=== PATIENT | female | born 1970 | race Caucasian/White ===

== ENCOUNTER 2016-07-02 04:58 | Day surgery (SDC) | payer OTHER ==
--- NOTE | 2016-07-01 15:05 | HP ---
[id number] Illness: 45 year old female complaining of heavy vaginal bleeding with her menses. A pelvic ultrasound was performed on June 15 revealing a retroverted uterus measuring 11by 8 by 6 cm. There was a fundal fibroid measuring 5 cm. The endometrium was described as prominent. Bleeding is excessive requiring 9 pads per day. Last month, bleeding was irregular. She denies pressure, pain or abdominal distention. Pap smear May 2016 negative for malignancy and HPV. History Source: Patient (and daughter Meghana who is a RN.), Family Member Limitations to Obtaining History: No Limitations - Past Surgical History Hx Myomectomy: No Hx Transabdominal Cerclage: No - Smoking History Smoking history: Never smoked Have you smoked in the past 12 months: No - Alcohol/Substance Use Hx Alcohol Use: No Home Medications - Allergies Allergies/Adverse Reactions: Allergies Allergy/AdvReac Type Severity Reaction Status Date / Time No Known Drug Allergies Allergy Verified 07/02/16 07:17 - Home Medications Home Medications: Ambulatory Orders Lisinopril [Zestril] 2.5 mg PO DAILY 07/01/16 Family Disease History - Family Disease History Family Disease History: CA: Sister (Uterine cancer), Other: Father (HPT) Review of Systems - Review of Systems Constitutional: reports: No Symptoms Cardiovascular: reports: No Symptoms Respiratory: reports: No Symptoms Gastrointestinal: reports: No Symptoms Genitourinary: reports: No Symptoms 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 Constitutional: Yes: Well Nourished, No Distress Neck: Yes: Supple Cardiovascular: Yes: Regular Rate and Rhythm Respiratory: Yes: CTA Bilaterally Gastrointestinal: Yes: WNL, Soft ...Rectal Exam: Yes: WNL Pelvis: Yes: WNL External Genitalia: Yes: Normal Internal Exam Deferred: No Vaginal Exam: Yes: Normal Cervix: Yes: Normal Uterus: Yes: Freely Moveable, Enlarged Adnexa: Normal: Bilateral Breast(s): Yes: WNL Edema: No Imaging - Results Ultrasound: Report Reviewed (Retroverted uterus with fundal fibroid and prominent endometrium) Assessment/Plan Fibroid Uterus Menorrhagia Plan: D and C with HYsteroscopy 07/02/2016
[2016-07-02] MEDS ORDERED: MIDAZOLAM HCL 2 MG/2 ML SINGLE DOSE VIAL ONE (07:47)
--- NOTE | 2016-07-02 08:02 | HP ---
History & Physical Update - History History: No Change - Physical Physical: No Change - Assessment Assessment: No Change - Plan Plan: No Change
[2016-07-02] MEDS ORDERED: PROPOFOL 20 ML ONE (08:08)
[2016-07-02] MEDS ORDERED: SUCCINYLCHOLINE CHLORIDE 200 MG/10 ML VIAL ONE (08:08)
[2016-07-02] MEDS ORDERED: LIDOCAINE HCL/PF 2% SDV 5ML VIAL ONE (08:22)
[2016-07-02] MEDS ORDERED: KETOROLAC TROMETHAMINE 30 MG/1 ML VIAL ONE (08:22)
[2016-07-02] MEDS ORDERED: DEXAMETHASONE SOD PHOSPHATE 4 MG/1 ML VIAL ONE (08:22)
[2016-07-02] MEDS ORDERED: IBUPROFEN 400 MG TABLET (FP) PO PRN (08:34)
[2016-07-02] MEDS ORDERED: ACETAMINOPHEN 325 MG TABLET (FP) PO PRN (08:34)
--- NOTE | 2016-07-02 08:40 | OP ---
Operative Note - Note: Operative Date: 07/02/16 Pre-Operative Diagnosis: Menorrhagia, Fibroid uterus, Prominent endometrium Operation: D and C Hysteroscopy Findings: Uterus enlarge 8 weeks size, globular firm mid position Cervix clear no lesion stenosed endocervix Uterine lenth 8 cm. Cavity globular, no polyps or fibroids seen Adnexa negative. Post-Operative Diagnosis: Other (Same plus endocervical stenosis) Surgeon: Stephen Robles Anesthesiologist/[employer] SUPERVISOR: Lelia Saeed MD Anesthesia: General Specimens Removed: Endometrial curettings Estimated Blood Loss (mls): 10 Fluid Volume Replaced (mls): 500 Operative Report Dictated: Yes
[2016-07-02] MEDS ORDERED: oxyCODONE HCL 5 MG TABLET PO PRN (08:43)
[2016-07-02] MEDS ORDERED: PROMETHAZINE HCL 25 MG/1 ML VIAL IVPUSH PRN (08:43)
[2016-07-02] MEDS ORDERED: ONDANSETRON 4 MG/2 ML VIAL IVPUSH PRN (08:43)
[2016-07-02] MEDS ORDERED: LACTATED RINGERS SOLUTION 1,000 ML IV SCH (08:45)
[2016-07-02 10:05] VITALS: BP 111/70; PULSE 84; TEMP 99.1
[2016-07-02] MEDS ORDERED: IBUPROFEN 400 MG TABLET (FP) PO ONE (10:19)
--- NOTE | 2016-07-03 09:42 | OP ---
DATE OF OPERATION: 07/02/2016 PREOPERATIVE DIAGNOSIS: Menorrhagia, fibroid uterus. POSTOPERATIVE DIAGNOSIS: Menorrhagia, fibroid uterus, plus cervical stenosis. SURGEON: Stephen Garcia MD ANESTHESIA: General. ANESTHESIOLOGIST: Lelia Saeed MD SPECIMEN: Endometrial curettings. BLOOD LOSS: 10 mL. FLUIDS: 500 mL. PROCEDURE: Under general anesthesia, the patient was placed in dorsal lithotomy position, prepped and draped in the usual sterile manner. Pelvic examination was performed revealing the uterus that was proportioned globular, approximately 8 weeks in size, firm and mobile. Adnexa negative. A weighted speculum was inserted in the vagina. The anterior lip of the cervix was grasped with a sharp-tooth tenaculum. The cervix was noted to be stenosed in the mid portion. Therefore, with careful dilatation with a small dilator and hysteroscopic visualization, a passage was created into the endometrial canal and into the endometrial cavity. The cervix was then dilated further. Hysteroscope was then inserted, revealing a globular shaped uterine cavity with no evidence of any submucous fibroids or polyps. With these findings noted, hysteroscope was then removed. Cervix was further dilated. Endometrial curettage was performed. Polypoid tissue was obtained. Patient tolerated the procedure well and was brought to the recovery room in satisfactory condition. STEPHEN GARCIA M.D. [id number] MTDD
--- NOTE | 2016-07-07 11:20 | PATH ---
Surgical Pathology Report Patient Name: DIANA BELL [facility] [place]. Rec. #: [id number] /Age/Gender: 1970 (Age: 45) / F Account: [id number] Location: [facility] Taken: 07/02/2016 Received: 07/02/2016 Reported: 07/05/2016 Physicians: Stephen Robles M.D. Specimen(s) Received ENDOMETRIAL CURETTINGS Clinical History 45 yo, heavy menses, fibroid uterus, prominent endometrium on ultrasound Final Diagnosis ENDOMETRIUM, CURETTAGE: POLYPOID AND NON-POLYPOID FRAGMENTS OF SECRETORY ENDOMETRIUM. FRAGMENTS OF BENIGN SMOOTH MUSCLE. Electronically Signed Kendall Rodriguez M.D. Gross Description Received in formalin labeled "endometrium" is a 4.0 x 2.6 x 0.3 cm aggregate of conner-pink soft tissue fragments. The formalin is filtered and the specimen is entirely submitted in 2 cassettes. /07/02/2016 saudi07/02/2016
== END 2016-07-02 10:35 | disposition home or self-care (01) ==
LOC: JASU-SURG 04:58
PROVIDERS: ATTEND Obstetrics & Gynecology
PROC: 0UDB8ZX Extraction of Endometrium, Via Natural or Artificial Opening Endoscopic, Diagnostic (ICD-10-PCS; principal; 2016-07-02 08:00)
DX: N92.0 Excessive and frequent menstruation with regular cycle (principal); N88.2 Stricture and stenosis of cervix uteri
CPT/HCPCS: 84703; 88305-TC; 94760

== ENCOUNTER 2016-09-16 21:11 | Emergency (ER) | payer OTHER ==
[2016-09-16 21:28] VITALS: BP 156/91; PULSE 99; TEMP 98.4; BMI 35.9
--- NOTE | 2016-09-16 23:33 | PDOC ---
History of Present Illness <Kumar Taylor - Last Filed: 09/17/16 02:06> - General History Source: Patient Exam Limitations: No Limitations - History of Present Illness Initial Comments: 09/17/16 02:09 The patient is a 46-year-old female, with no significant past medical history, who presents to the ED with right-sided adnexal pain. The patient reports having a D&C 2 months ago. She did not have a period last month but did start her period today. Family is concerned for a cyst. The patient denies any fever, chills, nausea, vomiting, or diarrhea. She denies any chest pain or shortness of breath. Surgical Hx: Gallbladder removal, D&C PCP: Dr. Stephen Rolbes <Layla Carlos - Last Filed: 09/17/16 02:12> - General Chief Complaint: Pain Stated Complaint: PAIN Time Seen by Provider: 09/16/16 23:32 Past History - Past Medical History Anemia: No Asthma: No Cancer: No Cardiac Disorders: No CVA: No COPD: No CHF: No Dementia: No Diabetes: No GI Disorders: No Disorders: No HTN: Yes Hypercholesterolemia: No Liver Disease: No Seizures: No Thyroid Disease: No - Surgical History Abdominal Surgery: Yes (Tubal ligation) Appendectomy: No Cardiac Surgery: No Cholecystectomy: Yes Lung Surgery: No Neurologic Surgery: No Orthopedic Surgery: No - Psycho/Social/Smoking Cessation Hx Suicidal Ideation: No Smoking History: Never smoked Have you smoked in the past 12 months: No Information on smoking cessation initiated: No Hx Alcohol Use: No Drug/Substance Use Hx: No Substance Use Type: None Hx Substance Use Treatment: No <Kumar Taylor - Last Filed: 09/17/16 02:06> <Layla Carlos - Last Filed: 09/17/16 02:12> - Past Medical History Allergies/Adverse Reactions: Allergies Allergy/AdvReac Type Severity Reaction Status Date / Time No Known Drug Allergies Allergy Verified 09/16/16 21:24 Home Medications: Ambulatory Orders Lisinopril [Zestril] 2.5 mg PO DAILY 07/01/16 Review of Systems - Review of Systems Able to Perform ROS?: Yes Comments:: 09/17/16 02:10 GENERAL/CONSTITUTIONAL: No fever or chills. No weakness. HEAD, EYES, EARS, NOSE AND THROAT: No change in vision. No ear pain or discharge. No sore throat. CARDIOVASCULAR: No chest pain or shortness of breath. RESPIRATORY: No cough, wheezing, or hemoptysis. GASTROINTESTINAL: +Right adnexal pain. No nausea, vomiting, diarrhea or constipation. GENITOURINARY: No dysuria, frequency, or change in urination. MUSCULOSKELETAL: No joint or muscle swelling or pain. No neck or back pain. SKIN: No rash NEUROLOGIC: No headache, vertigo, loss of consciousness, or change in strength/ sensation. ENDOCRINE: No increased thirst. No abnormal weight change. HEMATOLOGIC/LYMPHATIC: No anemia, easy bleeding, or history of blood clots. ALLERGIC/IMMUNOLOGIC: No hives or skin allergy. <Layla Carlos - Last Filed: 09/17/16 02:12> *Physical Exam - Vital Signs Last Vital Signs Temp Pulse Resp BP Pulse Ox 98.4 F 99 H 20 156/91 99 09/16/16 21:24 09/16/16 21:24 09/16/16 21:24 09/16/16 21:24 09/16/16 21:24 <Kumar Taylor - Last Filed: 09/17/16 02:06> - Vital Signs Last Vital Signs Temp Pulse Resp BP Pulse Ox 98.4 F 99 H 20 156/91 99 09/16/16 21:24 09/16/16 21:24 09/16/16 21:24 09/16/16 21:24 09/16/16 21:24 - Physical Exam Comments: 09/17/16 02:11 GENERAL: Awake, alert, and fully oriented, in no acute distress HEAD: No signs of trauma EYES: PERRLA, EOMI, sclera anicteric, conjunctiva clear ENT: Auricles normal inspection, hearing grossly normal, nares patent, oropharynx clear without exudates. Moist mucosa NECK: Normal ROM, supple, no lymphadenopathy, JVD, or masses LUNGS: Breath sounds equal, clear to auscultation bilaterally. No wheezes, and no crackles HEART: Regular rate and rhythm, normal S1 and S2, no murmurs, rubs or gallops ABDOMEN: +Tenderness at [place]bur[place] point. Soft, normoactive bowel sounds. No guarding, no rebound. No masses EXTREMITIES: Normal range of motion, no edema. No clubbing or cyanosis. No cords, erythema, or tenderness NEUROLOGICAL: Cranial nerves II through XII grossly intact. SKIN: Warm, Dry, normal turgor, no rashes or lesions noted <Layla Carlos - Last Filed: 09/17/16 02:12> ED Treatment Course - LABORATORY CBC & Chemistry Diagram: 09/17/16 00:18 09/17/16 00:18 <Kumar Taylor - Last Filed: 09/17/16 02:06> - LABORATORY CBC & Chemistry Diagram: 09/17/16 00:18 09/17/16 00:18 - ADDITIONAL ORDERS Additional order review: Laboratory Results 09/17/16 09/17/16 09/17/16 00:50 00:18 00:18 INR Sodium 139 Potassium 4.0 Chloride 107 Carbon Dioxide 25 Anion Gap 7 L BUN 13 Creatinine 0.7 Creat Clearance w eGFR > 60 Random Glucose 104 Calcium 9.1 Total Bilirubin 0.2 AST 34 ALT 47 Alkaline Phosphatase 82 Total Protein 7.6 Albumin 3.9 Beta HCG, Quant < 1.0 Serum , Qual Negative Urine Color Ltyellow Urine Appearance Clear Urine pH 6.0 Urine Protein Negative Urine Glucose (UA) Negative Urine Ketones Negative Urine Blood 3+ H Urine Nitrite Negative Urine Bilirubin Negative Urine Urobilinogen Negative Ur Leukocyte Esterase Negative Urine RBC 35 Urine WBC 33 Ur Epithelial Cells Rare Calcium Oxalate Crystal Rare Urine Bacteria Few Urine Mucus Rare Urine HCG, Qual Negative 09/16/16 23:45 INR 1.12 Sodium Potassium Chloride Carbon Dioxide Anion Gap BUN Creatinine Creat Clearance w eGFR Random Glucose Calcium Total Bilirubin AST ALT Alkaline Phosphatase Total Protein Albumin Beta HCG, Quant Serum , Qual Urine Color Urine Appearance Urine pH Urine Protein Urine Glucose (UA) Urine Ketones Urine Blood Urine Nitrite Urine Bilirubin Urine Urobilinogen Ur Leukocyte Esterase Urine RBC Urine WBC Ur Epithelial Cells Calcium Oxalate Crystal Urine Bacteria Urine Mucus Urine HCG, Qual 09/17/16 00:18 RBC 3.91 MCV 90.9 MCHC 33.3 RDW 14.2 MPV 9.5 Neutrophils % 58.7 D Lymphocytes % 31.6 D Monocytes % 7.3 Eosinophils % 1.7 Basophils % 0.7 - Medications Given in the ED: ED Medications Discontinued Medications Generic Name Dose Route Start Last Admin Trade Name Freq PRN Reason Stop Dose Admin Sodium Chloride 1,000 mls @ 1,000 mls/hr 09/16/16 23:51 09/17/16 00:28 Normal Saline - IV 09/17/16 00:50 Not Given ASDIR STA <Layla Carlos - Last Filed: 09/17/16 02:12> Medical Decision Making - Medical Decision Making 09/17/16 02:06 Patient was never sent to cat scan and now she is tired of waiting and wants to leave [facility] <Kumar Taylor - Last Filed: 09/17/16 02:06> *DC/Admit/Observation/Transfer - Discharge Dispostion Admit: No - Attestations Physician Attestion: 09/16/16 23:33 I, Dr. Kumar Taylor, attest that this document has been prepared under my direction and personally reviewed by me in its entirety. I further attest, that it accurately reflects all work, treatment, procedures and medical decision -making performed by me. <Kumar Taylor - Last Filed: 09/17/16 02:06> - Attestations Scribe Attestion: 09/17/16 02:12 Documentation prepared by Layla Carlos, acting as medical reimbursement specialist for Kmuar Taylor MD. <TerranceElvisLayla - Last Filed: 09/17/16 02:12> Diagnosis at time of Disposition: Abdominal pain Qualifiers: Abdominal location: right lower quadrant Qualified Code(s): R10.31 - Right lower quadrant pain - Referrals Referrals: Stephen Robles MD [Primary Care Provider] - - Patient Instructions Additional Instructions: Analisa- I can not tell you why you are hurting. So far all we see are fibroids in your uterus. 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 All I can tell you is to come back if the pain continues or gets worse. The CT Scan that you are refusing would tell us if you have appendicitis. Without it I can not tell you what is wrong. Best- Dr. Kumar Taylor
[2016-09-16] MEDS ORDERED: SODIUM CHLORIDE 1,000 ML IV STA (23:51)
[2016-09-17 00:46] LABS: BASOPHIL 0.7 % (0-2.0); EOSINOPHIL 1.7 % (0-4.5); MCH 30.3 pg (25.7-33.7); MCHC 33.3 g/dl (32.0-36.0); MEAN CELL VOLUME 90.9 fl (80-96); MEAN PLT VOLUME 9.5 fl (7.5-11.1); NEUTROPHILS 58.7 % (42.8-82.8); PLATELET COUNT 220 K/MM3 (134-434); RDW 14.2 % (11.6-15.6); WHITE BLOOD COUNT 7.9 K/mm3 (4.0-10.0)
[2016-09-17 00:48] LABS: URINE APPEARANCE CLEAR; URINE BILIRUBIN NEGATIVE (NEGATIVE); URINE BLOOD 3+ (NEGATIVE); URINE COLOR LTYELLOW; URINE GLUCOSE (UA) NEGATIVE (NEGATIVE); URINE KETONE NEGATIVE (NEGATIVE); URINE LEUK ESTERASE NEGATIVE (NEGATIVE); URINE NITRITE NEGATIVE (NEGATIVE); URINE PROTEIN NEGATIVE (NEGATIVE); URINE UROBILINOGEN NEGATIVE mg/dL (0.2-1.0)
[2016-09-17 00:54] LABS: CALCIUM OXALATE CRYSTALS RARE /hpf (NONE SEEN); URINE BACTERIA FEW /hpf (NONE SEEN); URINE MUCUS RARE; URINE RBC 35 /hpf (0-3); URINE WBC 33 /hpf (3-5)
[2016-09-17 01:00] LABS: INR 1.12 (0.82-1.09); PROTHROMBIN TIME (PATIENT) 12.3 SEC (9.98-11.88)
[2016-09-17 01:14] LABS: ALBUMIN 3.9 g/dl (3.4-5.0); ANION GAP 7 (8-16); CALCIUM 9.1 mg/dL (8.5-10.1); CO2 25 mmol/L (21-32); CREATININE 0.7 mg/dL (0.55-1.02); GLUCOSE,RANDOM 104 mg/dL (74-106); SGOT/AST 34 U/L (15-37); SGPT/ALT 47 U/L (12-78)
[2016-09-17 01:18] LABS: ALK PHOS 82 U/L (45-117); BILIRUBIN,TOTAL 0.2 mg/dL (0.2-1.0); TOT PROT 7.6 g/dl (6.4-8.2)
== END 2016-09-17 02:16 | disposition left against medical advice (07) ==
LOC: JER 21:11
DX: R10.31 Right lower quadrant pain (principal); I10 Essential (primary) hypertension
CPT/HCPCS: 36415; 76830-TC; 76856-TC; 80053; 81003; 81015; 84702; 84703; 85025; 85610; 99282-25

== ENCOUNTER 2023-12-26 05:23 | Day surgery (SDC) | payer OTHER ==
[2023-12-22 13:02] VITALS: BMI 30.2
[2023-12-26] MEDS ORDERED: ONDANSETRON 4 MG/2 ML VIAL IVPUSH PRN (09:07)
[2023-12-26] MEDS ORDERED: LACTATED RINGERS SOLUTION 1,000 ML IV SCH (09:15)
[2023-12-26] MEDS ORDERED: MIDAZOLAM HCL 2 MG/2 ML SINGLE DOSE VIAL ONE (10:35)
[2023-12-26] MEDS ORDERED: PROPOFOL 20 ML ONE (10:35)
[2023-12-26] MEDS ORDERED: ONDANSETRON 4 MG/2 ML VIAL ONE (10:36)
[2023-12-26] MEDS ORDERED: KETOROLAC TROMETHAMINE 30 MG/1 ML VIAL ONE (10:36)
[2023-12-26] MEDS ORDERED: DEXAMETHASONE SOD PHOSPHATE 4 MG/1 ML VIAL ONE (10:36)
[2023-12-26] MEDS ORDERED: LIDOCAINE HCL/PF 2% SDV 5ML VIAL ONE (10:36)
[2023-12-26] MEDS ORDERED: ceFAZolin SODIUM 1 GM VIAL ONE (11:10)
[2023-12-26] MEDS: ceFAZolin SODIUM 1 GM VIAL IVPB ONE (11:12)
[2023-12-26] MEDS: oxyCODONE HCL 5 MG TABLET PO PRN (13:03)
[2023-12-26 13:31] VITALS: RESP 20; TEMP 97.7
[2023-12-26 15:46] VITALS: BP 128/75; PULSE 78
== END 2023-12-26 14:05 | disposition home or self-care (01) ==
LOC: JASU-SURG 05:23
PROVIDERS: ATTEND Obstetrics & Gynecology
PROC: 0UB98ZZ Excision of Uterus, Via Natural or Artificial Opening Endoscopic (ICD-10-PCS; principal; 2023-12-26 10:00)
DX: N95.0 Postmenopausal bleeding (principal); N84.0 Polyp of corpus uteri; D25.9 Leiomyoma of uterus, unspecified
CPT/HCPCS: 88305-TC; 94760